=== PATIENT | female | born 1995 | race Hispanic/Latino ===

== ENCOUNTER 2016-10-30 10:53 | Emergency (ER) | payer OTHER ==
[~2016-10-30] VITALS: Ht 142.2 cm; Wt 59.1 kg
[2016-10-30 10:58] VITALS: BP 100/69; PULSE 72; RESP 16; O2SAT 99
--- NOTE | 2016-10-30 11:30 | ED.REPORT ---
HPI-Extremity Problem Upper Date of Service October 30, 2016 ED Provider: Willian Schulte PA-C Delaney is otherwise healthy and right-handed female patient with a chief complaint of right finger pain. She reports that it began when she shut her hand in a door last night. Reports pain in the third fourth and fifth PIP and DIP joints with limited range of motion. She is unsure of her tetanus status. Denies comorbidities such as diabetes, HIV or use of immunosuppressive drugs. Nursing Notes Stated Complaint: LACERATION ON RT HAND Chief Complaint: Extremity Trauma Nursing Notes Reviewed: Yes Allergies: Coded Allergies: No Known Allergies (Unverified , 10/30/16) No Active Prescriptions or Reported Meds General Time Seen by MD: 11:23 Chief Complaint Hand injury right Past Medical History Past Medical History Denies Review of Systems Review of Systems Note: Negative unless stated otherwise in history of present illness Physical Exam General: Well appearing, well developed, well nourished, no acute distress. Right hand: Sensation and brisk capillary refill intact in all digits. Pulses 2 + Right hand, First and second digits: Normal to inspection, nontender, full range of motion and strength of the MCP, PIP and DIP joints. Right hand, third digit: Shallow laceration on the palmar aspect of the PIP joint. Not gaping, no incursion into the joint space. Reduced range of motion at PIP joint. MCP and DIP joint nontender with full range of motion and strength. Right hand, fourth digit: Normal to inspection, tenderness and limited range of motion at PIP joint. MCP and DIP joint nontender with full range of motion and strength. Right hand, fifth digit: Small skin tear at the proximal nail fold. Small hematoma forming under the nail. Full range of motion MCP, PIP and DIP joint. Head: Atraumatic, normocephalic. Eyes: No scleral icterus or injection. No discharge. Vision grossly intact. ENT: Voice clear, hearing grossly intact. Respiratory: No respiratory distress, no increased work of breathing. Speaks in complete sentences. Skin: Warm and dry. Neurological: Grossly nonfocal. Psychological: alert and oriented. Speech appropriate, linear and logical. Behavior appropriate. Initial Vital Signs Vital Signs (First) Date Time Temp Pulse Resp B/P Pulse Ox O2 Delivery O2 Flow Rate FiO2 10/30/16 10:58 36.3 72 16 100/69 99 Room Air Initial VS: Vital signs normal Interpretation & Diagnostics X-Ray Interpretation Xray Interpretation: PROCEDURE: X-RAY FINGERS, TWO VIEWS INDICATIONS: pain in distal fourth fifth and sixth digits IMPRESSION: No acute fracture. No osseous lesion. If clinical suspicion and/or symptoms persist, further assessment with repeat plainfilms, or advanced imaging (e.g., CT, MRI, or bone scan) may be helpful for further assessment. Interpretation / Wet Read by: Interpret - Radiologist, Interp - P Re-Eval/Medical Decision Med Decision/Clinical Course Otherwise healthy 21-year-old female presents with a chief complaint of left hand pain after shutting her hand in a door last night. Complains of 2 lacerations one on the palmar aspect of the PIP joint of the third digit and one on the dorsal aspect of the distal phalanx of the fifth digit. She is unsure of her tetanus status. X-rays negative for fracture. Physical examination reveals superficial injuries to both fingers. Wounds are cleaned and dressed with anabolic ointment and bandages. Instructions given regarding wound care, [id number] analgesia, primary care follow-up, emergency return precautions. Patient verbalizes understanding of and content with the plan Discharge & Departure Impression: Primary Impression: Contusion of left hand including fingers Encounter type: initial encounter Qualified Code: S60.222A - Contusion of left hand, initial encounter Disposition: Home Discharge Condition All VS Reviewed: Yes Condition: Stable Additional Instructions: Evaluation for left hand pain in the emergency department includes history, physical exam and x-rays which are reassuring that there is no fracture to her fingers. I also do not believe that the lacerations on her fingers will require stitches. He is appeared to be quite shallow and should heal well on their own. Keep these covered with antibiotic ointment and Band-Aids for the next several days until they start to heal. Be aware that the nail in your pinky finger may fall off eventually. It should grow back normally if this happens. The pain is best treated with 400 mg of ibuprofen (Advil, Motrin) every 6 hours , or 1000 mg of acetaminophen (Tylenol) every 6 hours. These drugs can be taken at the same time for more severe pain. Follow-up with her primary care providers if any concerns about how these are healing. Return to the emergency department for any new or worsening symptoms including signs of infection, increasing pain or inability to move the joints. Referrals: Alma Tomlin PA-C (PCP) EDSupervising Provider for APC: Roderick Goncalves MD copies to: Alma Tomlin PA-C, Seth PA-C October 30, 2016 11:30
[2016-10-30] MEDS ORDERED: TdaP Vaccine 0.5 mL Inj IM ONE (11:35)
--- NOTE | 2016-10-30 11:58 | DRSVH ---
PROCEDURE: X-RAY FINGERS, TWO VIEWS INDICATIONS: pain in distal fourth fifth and sixth digits TECHNIQUE: AP hand, 2 views of the right fourth and fifth finger(s) acquired. COMPARISON: None. FINDINGS: Bones: No fractures or dislocations. No suspicious bony lesions. Soft tissues: No suspicious soft tissue calcifications. IMPRESSION: No acute fracture. No osseous lesion. If clinical suspicion and/or symptoms persist, fur ther assessment with repeat plainfilms, or advanced imaging (e.g., CT, MRI, or bone scan) may be help ful for further assessment. Dictated by: Mohinder Davey M.D. on 10/30/2016 at 11:57 Approved by: Mohinder Davey M.D. on 10/30/2016 at 11:57
[2016-10-30 13:05] VITALS: BP 104/75; PULSE 87; RESP 16; O2SAT 98
== END 2016-10-30 13:05 | disposition home or self-care (01) ==
LOC: SED 10:53
DX: S60.221A Contusion of right hand, initial encounter (principal); W23.0XXA Caught, crushed, jammed, or pinched between moving objects, initial encounter; Y93.89 Activity, other specified; Y92.89 Other specified places as the place of occurrence of the external cause; Y99.8 Other external cause status; Z23 Encounter for immunization
CPT/HCPCS: 73140; 90471; 90715; 96372; 99284; J1885

== ENCOUNTER 2017-02-06 16:21 | Emergency (ER) | payer OTHER ==
[2017-02-06 16:53] VITALS: BP 112/75; PULSE 109; RESP 18; O2SAT 99
--- NOTE | 2017-02-06 17:11 | ED.REPORT ---
HPI- Female Date of Service Feb 06, 2017 ED Provider: History of Present Illness: 21-year-old female that is 15 weeks here for multiple concerns. For the last 4 days she has had right lower quadrant abdominal pain and a cold. Her cold consists of runny nose, sore throat, ear pain, cough. She has not taken anything to treat her symptoms. When she coughs it makes her right lower quadrant pain worse. The pain can also worsen randomly. For the past 4 days she has been vomiting and nauseous as well. No fevers. She also complains of headaches for a week and a half. She saw her doctor for this on Tuesday and she states he did nothing. Headaches have not worsened in the last week and half. No visual deficits. Had a normal ultrasound with a 10 week old fetus on 01-05-17 Nursing Notes Stated Complaint: COLD SYMPTOMS,STOMACH PAIN, 4MO Chief Complaint: & Delivery Nursing Notes Reviewed: Yes Allergies: Coded Allergies: No Known Allergies (Unverified , 10/30/16) No Active Prescriptions or Reported Meds General Time Seen by MD: 17:05 Chief Complaint Abdominal pain... (RLQ), Pelvic pain Hx Obtained From: Patient Arrived By: Walk-in Sudden in Onset?: No Onset Occurred: 4 days ago Symptom Duration: Waxes and wanes Location: : RLQ Radiation: Does not radiate Severity: Current: Moderate Severity: Maximum: Moderate Status: Positive - ED serum HCG Recent Healthcare: Recent doctor visit Similar Sx Previous: Yes Past Medical History Past Medical History Denies Review of Systems Basic Review of Systems Eyes: Vision NL, No discharge Respiratory: No shortness of breath, No cough, No wheeze Cardiovascular: No chest pain, No dyspnea on exertion, No orthopnea, No parox noct dyspnea, No palpitations Constitutional: Denies: Chills, Fatigue, Fever GI: Reports: Abdominal pain, Nausea, Vomiting Female: Reports: , Denies: Dysuria, Urinary frequency, Urinary urgency, Vaginal bleeding - abnl , Vaginal discharge Musculoskeletal: Denies: Back pain Neurologic: Reports: Dizziness, Denies: Confusion Complete sys rev & neg: except as marked. Physical Exam Initial Vital Signs Vital Signs (First) Date Time Temp Pulse Resp B/P Pulse Ox O2 Delivery O2 Flow Rate FiO2 02/06/17 16:53 36.6 109 18 112/75 99 Room Air Initial VS: Reviewed, Vital signs normal General/Constitutional: Well-developed, Well-nourished Head / Eyes: Atraumatic, Normocephalic, PERRL ENT: Mucous membranes moist, Conjunctiva normal, No scleral icterus Neck: Supple, Non-tender, Full range of motion Respiratory: Breath sounds normal, Clear to auscultation, No respiratory distress Cardiovascular: Regular rate & rhythm, Heart sounds normal, Intact distal pulses Back: No CVA tenderness Lymphatic: No lymphadenopathy Skin: Warm, Dry, No cyanosis Neurologic: Alert, Oriented, Nonfocal Psychiatric: Mood/affect normal, Behavior normal, Normal thought content General/Constitutional: Awake, Alert, Well appearing Abdomen: Atraumatic, Soft, No guarding, No rebound, BS normoactive, No distention, No hernia, No palpable mass, No pulsatile mass Tenderness/Guarding/Rebound: Positive: Tender RLQ... (Moderate) Head / Eyes: Atraumatic, Normocephalic, PERRL, EOMI, No nystagmus, No periorbital swelling, No photophobia, No scleral icterus, Conjunctiva NL ENT: Atraumatic, Airway patent, Mucous membranes moist, Pharynx NL, Tympanic membs NL, Ext aud canal NL, Mastoid area NL, Nose exam NL, No sinus tenderness, No facial swelling Interpretation & Diagnostics Interpretation & Diagnostics: Patient Name: MICKI BUSH MR#: [id number] [place] [facility] [place] Phys: Melba Kwon MD Date of Service: 01/05/17 0727 +/- 7 days from 14 weeks to 15 weeks 6 days gestation, +/- 10 days from 16 weeks to 21 weeks 6 days gestation, +/- 2 weeks from 22 weeks to 27 weeks 6 days gestation, +/- 3 weeks for 28 weeks gestation or later. PROCEDURE: US OB<14 WKS+OB TRANSVAG INDICATIONS: AMENORRHEA OUTSIDE/PRIOR DATING DATA: Last menstrual period (LMP): 10/31/16. LMP-based estimated date of delivery (MARCELLO): 08/07/17. First dating scan (date and location): 01/05/17. Estimated date of delivery (MARCELLO) from first dating scan: 08/01/17. TECHNIQUE: Real-time scanning was performed of the fetus and maternal pelvic organs, with image documentation. Endovaginal scanning was also performed to better visualize the fetus and maternal ovaries. COMPARISON: None. FINDINGS: Embryo: [employer] Ultrasound Procedure Report Early Gestation [facility] [place] Rump Length: 3.39 cm Gestational Age (CRL): 10 weeks, 2 days Summary Fetus Summary Heart Rate: 171 bpm Comments: A normal yolk sac is noted. No perigestational bleeds. Measurement variability in dating: +/- 4 weeks by LMP, +/- 7 days by mean sac diameter (use before 6 weeks gestation if crown-rump length not able to be measured), +/- 5 days by crown-rump length (up to 8 weeks 6 days gestation), +/- 7 days by crown-rump length (from 9 weeks to 13 weeks 6 days gestation). Maternal organs: Ovaries within normal limits. Limited images through the kidneys demonstrate no hydronephrosis. IMPRESSION: 10 week 2 day single living IUP Lab Results Interpretation Result Diagram: 02/06/17 1744 02/06/17 1744 Test 02/06/17 17:44 02/06/17 19:08 White Blood Count 11.9th/mm3 (3.8-10.1) Red Blood Count 4.62mil/mm3 (3.90-5.20) Hemoglobin 13.4g/dL (12.0-15.6) Hematocrit 38.5% (35.0-46.0) Mean Corpuscular Volume 83.3fL (81-100) Mean Corpuscular Hemoglobin 29.0pg (27.0-35.0) Mean Corpuscular Hemoglobin Concent 34.8% (32.0-37.0) Red Cell Distribution Width 13.1% (12.3-15.4) Platelet Count 296bil/L (150-400) Neutrophils (%) (Auto) 73.6% (40-74) Lymphocytes (%) (Auto) 15.4% (14-46) Monocytes (%) (Auto) 7.8% (4-12) Eosinophils (%) (Auto) 2.6% (0-5) Basophils (%) (Auto) 0.2% (0-3) Sodium Level 134mEq/L (134-144) Potassium Level 3.6mEq/L (3.5-5.2) Chloride Level 99mEq/L (97-108) Carbon Dioxide Level 18mmol/L (18-29) Blood Urea Nitrogen 8mg/dL (6-20) Creatinine 0.32mg/dL (0.57-1.00) Estimat Glomerular Filtration Rate 377mL/min (>59) Glucose Level 79mg/dL (60-99) Calcium Level 9.0mg/dL (8.5-10.1) Total Bilirubin 0.2mg/dL (0.0-1.2) Aspartate Amino Transf (AST/SGOT) 10U/L (0-50) Alanine Aminotransferase (ALT/SGPT) 7U/L (0-32) Alkaline Phosphatase 74U/L (25-150) Total Protein 7.3g/dL (6.4-8.4) Albumin 3.7g/dL (3.4-5.0) Hold Wen Top Tube Received (Received) Urine Color Yellow (YELLOW) Urine Appearance Clear (CLEAR,HAZY) Urine pH 5.5 (5.0-8.0) Urine Specific [place] 1.010 (1.003-1.035) Urine Protein Negativemg/dL (NEG,TRACE) Urine Glucose (UA) Negativemg/dL (NEGATIVE) Urine Ketones Tracemg/dL (NEGATIVE) Urine Occult Blood Negative (NEGATIVE) Urine Nitrite Negative (NEGATIVE) Urine Bilirubin Negative (NEGATIVE) Urine Urobilinogen Normalmg/dL (NORMAL) Urine Leukocyte Esterase Negative (NEGATIVE) Urine RBC 0-2/hpf (0-2) Urine WBC 0-5/hpf (0-5) Urine Epithelial Cells Moderate/hpf (NONE-MOD) Urine Crystals None seen (NONE SEEN) Urine Bacteria None/hpf (NONE-FEW) Urine Hyaline Casts None/lpf (NONE) Urine Granular Casts None seen (NONE SEEN) Urine Waxy Casts None seen (NONE SEEN) Urine Red Blood Cell Casts None seen (NONE SEEN) Urine White Blood Cell Casts None seen (NONE SEEN) Urine Mucus None seen (None Seen) Urine Trichomonas None seen (NONE SEEN) Urine Yeast None (NONE SEEN) Urinalysis Comment None Urine Culture Reflexed Not indicated Re-Eval/Medical Decision Med Decision/Clinical Course Patient states headache is the same Tylenol has not helped. Right lower quadrant abdominal pain is improved as a 2 out of 10. Still awaiting her urine sample. UA WNL, no protein. pt still improving. will have pt return if symptoms worsen Discharge & Departure Shift Change Sign-Out Laboratory Evaluation: Lab evaluation discussed Imaging Studies: Imaging discussed Procedures: Results discussed Response to Therapy: Improved Impression: Primary Impression: Abdominal pain affecting Additional Impressions: URI (upper respiratory infection) URI type: unspecified viral URI Qualified Code: J06.9 - Acute upper respiratory infection, unspecified Headache Headache type: unspecified Headache chronicity pattern: unspecified pattern Intractability: not intractable Qualified Code: R51 - Headache Disposition: Home Discharge Condition All VS Reviewed: Yes Condition: Stable Patient Instructions: Abdominal Pain in (ED), Acute Headache (ED) Additional Instructions: Take Tylenol 1 g every 8 hours as needed for pain, drink lots of water and rest. Return to ER immediately if your abdominal pain increases or is severe. Return immediately if you gets fevers. Follow-up with your OB in 2 days for recheck. Referrals: Alma Tomlin PA-C (PCP) EDSupervising Provider for APC: Enrique Torncoso MD, Linnea K ARNP Feb 06, 2017 17:11
[2017-02-06 17:48] LABS: BASOPHILS % (AUTO) 0.2 % (0-3); EOSINOPHILS % (AUTO) 2.6 % (0-5); MONOCYTES % (AUTO) 7.8 % (4-12); Mean Corpuscular Volume 83.3 fL (81-100); NEUTROPHILS % (AUTO) 73.6 % (40-74); Platelet Count 296 bil/L (150-400)
[2017-02-06 18:53] VITALS: BP 120/78; PULSE 90; RESP 20; O2SAT 100
[2017-02-06 19:19] LABS: APPEARANCE,URINE CLEAR (CLEAR,HAZY); COLOR,URINE YELLOW (YELLOW); OCCULT BLOOD,URINE NEGATIVE (NEGATIVE); PH,URINE 5.5 (5.0-8.0); UROBILINOGEN,URINE NORMAL (NORMAL)
[2017-02-06 19:43] VITALS: BP 120/78; PULSE 90; RESP 20; O2SAT 100
== END 2017-02-06 19:44 | disposition home or self-care (01) ==
LOC: SED 16:21
DX: O99.89 Other specified diseases and conditions complicating pregnancy, childbirth and the puerperium (principal); R10.31 Right lower quadrant pain; J06.9 Acute upper respiratory infection, unspecified; R51 Headache; Z3A.10 10 weeks gestation of pregnancy